=== PATIENT | female | born 1970 | race Caucasian/White ===

== ENCOUNTER → 2017-07-29 | Outpatient (CLI) | payer MEDICAID, BC ==
--- NOTE | 2017-07-29 14:10 | MM ---
Reason for exam: screening (asymptomatic). Baseline mammogram. History: Family history of breast cancer in paternal aunt. Took hormonal contraceptives beginning at age 22. Physical Findings: Nurse did not find any significant physical abnormalities on exam. MG 3D Screening Mammo W/Cad Bilateral CC and MLO view(s) were taken. The breast tissue is heterogeneously dense. This may lower the sensitivity of mammography. Right subtle medial asymmetry at middle depth. Left upper outer quadrant 3mm mass at middle depth. These results were verbally communicated with the patient and result sheet given to the patient on 07/29/17. ASSESSMENT: Incomplete: need additional imaging evaluation, BI-RAD 0 RECOMMENDATION: Special view mammogram of the right breast. Ultrasound of the left breast. [facility] will attempt to contact patient to return for supplemental views and ultrasound.
--- NOTE | 2017-07-29 14:12 | MM ---
Reason for exam: additional evaluation requested from abnormal screening. History: Family history of breast cancer in paternal aunt. Took hormonal contraceptives beginning at age 22. Physical Findings: Breast exam preformed at baseline screening. MG 3D Work Up W/Cad RT Spot compression CC and LM view(s) were taken of the right breast. The breast tissue is heterogeneously dense. This may lower the sensitivity of mammography. The medial right asymmetry resolves on spot compression and the lateral views appearing as fibroglandular tissue. These results were verbally communicated with the patient and result sheet given to the patient on 07/29/17. ASSESSMENT: Incomplete: need additional imaging evaluation, BI-RAD 0 RECOMMENDATION: Ultrasound. (left)
--- NOTE | 2017-07-29 14:14 | USB ---
Reason for exam: additional evaluation requested from abnormal screening. History: Family history of breast cancer in paternal aunt. Took hormonal contraceptives beginning at age 22. US Breast Workup Limited LT Left breast ultrasound demonstrates a 0.4 x 0.4 x 0.3cm oval, cystic cluster at 9 o'clock and a 0.7 x 0.8 x 0.2cm oval node at 9 o'clock. These results were verbally communicated with the patient and result sheet given to the patient on 07/29/17. ASSESSMENT: Benign, BI-RAD 2 RECOMMENDATION: Return to routine screening mammogram schedule for both breasts.
== END | disposition home or self-care (01) ==
LOC: RADMAMWWP 12:47 → MERGE 13:00
PROVIDERS: ATTEND Family Medicine
DX: Z12.31 Encounter for screening mammogram for malignant neoplasm of breast (principal); N63.21 Unspecified lump in the left breast, upper outer quadrant
CPT/HCPCS: 77067; 77065; 77063; 76642; G0279

== ENCOUNTER → 2017-07-30 | Outpatient (CLI) | payer MEDICAID, BC ==
[2017-07-30 08:01] LABS: Basophils # (A) 0.1 k/uL (0-0.2); Basophils % (A) 1 %; Eosinophils # (A) 0.5 k/uL (0-0.7); Eosinophils % (A) 7 %; HCT 37.6 % (34.0-46.0); HGB 12.3 gm/dL (11.4-16.0); Lymphocytes # (A) 2.8 k/uL (1.0-4.8); Lymphocytes % (A) 34 %; MCH 27.1 pg (25.0-35.0); MCHC 32.7 g/dL (31.0-37.0); MCV 82.9 fL (80.0-100.0); Mean Platelet Volume 7.5; Monocytes # (A) 0.5 k/uL (0-1.0); Monocytes % (A) 6 %; Neutrophils # (A) 4.3 k/uL (1.3-7.7); Neutrophils % (A) 51 %; Platelet Count 315 k/uL (150-450); RBC 4.53 m/uL (3.80-5.40); RDW 15.2 % (11.5-15.5); WBC 8.3 k/uL (3.8-10.6)
[2017-07-30 08:12] LABS: ALT 26 U/L (9-52); AST 23 U/L (14-36); Albumin 4.5 g/dL (3.5-5.0); Alkaline Phosphatase 83 U/L (38-126); Anion Gap 12 mmol/L; Blood Urea Nitrogen 9 mg/dL (7-17); Carbon Dioxide 28 mmol/L (22-30); Chloride 106 mmol/L (98-107); Cholesterol 158 mg/dL (<200); Glucose 94 mg/dL (74-99); HDL Cholesterol 47 mg/dL (40-60); LDL Cholesterol,Calculated 76 mg/dL (0-99); Potassium 4.5 mmol/L (3.5-5.1); Sodium 146 mmol/L (137-145); Total Bilirubin 0.4 mg/dL (0.2-1.3); Total Protein 7.4 g/dL (6.3-8.2); Triglycerides 174 mg/dL (<150)
== END | disposition home or self-care (01) ==
LOC: LABMAIN 07:13
PROVIDERS: ATTEND Nurse Practitioner
DX: Z00.00 Encounter for general adult medical examination without abnormal findings (principal); Z13.1 Encounter for screening for diabetes mellitus
CPT/HCPCS: 36415; 80053; 80061; 85025

== ENCOUNTER 2019-04-25 16:23 | Emergency (ER) | payer MEDICAID, BC ==
[2019-04-25 16:35] VITALS: RESP 18; TEMP 97.5
[2019-04-25] MEDS ORDERED: MORPHINE SULFATE 4 MG/ML SYRINGE IV STA (16:44)
[2019-04-25] MEDS ORDERED: METOCLOPRAMIDE 5 MG/ML 2 ML VIAL IVP STA (16:44)
[2019-04-25] MEDS ORDERED: SODIUM CHLORIDE 0.9% 1,000 ML IV STA ×2 (16:44)
--- NOTE | 2019-04-25 16:47 | ED ---
General Adult HPI - General Chief complaint: Headache Stated complaint: headache Time Seen by Provider: 04/25/19 16:27 Source: patient, family, RN notes reviewed Mode of arrival: ambulatory Limitations: no limitations - History of Present Illness Initial comments: Patient is a very pleasant 48-year-old female presenting to the emergency Department with complaints of headache. Onset of headache was around 1:00. Headache progressed over minutes. Headache is severe at this point. Headache is mostly behind the right eye. Patient has associated photophobia that is somewhat severe. Patient has nausea. Patient has had similar episodes approximate doesn't times over the past year. Patient has seen her doctor for this. Patient states she does have some blurry vision of the right eye at times. Patient also has some paresthesia of the left hand at times. No loss of sensation. No weakness. No confusion. No neck pain. No fevers. - Related Data Previous Rx's Medication Instructions Recorded Metoclopramide HCl [Reglan] 10 mg PO Q6HR PRN #15 tablet 04/25/19 Allergies Allergy/AdvReac Type Severity Reaction Status Date / Time No Known Allergies Allergy Verified 04/25/19 16:35 Review of Systems ROS Statement: Those systems with pertinent positive or pertinent negative responses have been documented in the HPI. ROS Other: All systems not noted in ROS Statement are negative. Constitutional: Denies: fever Eyes: Reports: as per HPI ENT: Denies: ear pain Respiratory: Denies: cough, dyspnea Cardiovascular: Denies: chest pain Endocrine: Denies: fatigue Gastrointestinal: Reports: nausea. Denies: abdominal pain, vomiting Genitourinary: Denies: urgency Musculoskeletal: Denies: back pain Skin: Denies: rash Neurological: Reports: as per HPI, headache. Denies: weakness Past Medical History Additional Past Medical History / Comment(s): retinitis pigmentosa History of Any Multi-Drug Resistant Organisms: None Reported Past Surgical History: Adenoidectomy, Tonsillectomy, Tubal Ligation Past Psychological History: No Psychological Hx Reported Smoking Status: Current every day smoker Past Alcohol Use History: Rare Past Drug Use History: None Reported General Exam Limitations: no limitations General appearance: alert, in no apparent distress Head exam: Present: normocephalic Eye exam: Present: normal appearance, PERRL, EOMI ENT exam: Present: normal oropharynx Neck exam: Present: normal inspection. Absent: tenderness, meningismus Respiratory exam: Present: normal lung sounds bilaterally Cardiovascular Exam: Present: regular rate, normal rhythm GI/Abdominal exam: Present: soft. Absent: tenderness Extremities exam: Present: normal inspection Neurological exam: Present: alert, oriented X3, CN II-XII intact. Absent: motor sensory deficit Expanded Neurological exam: Present: protecting the airway Patient oriented to: Present: person, place, time Speech: Present: fluid speech Cranial nerves: EOM's Intact: Normal Sensory exam: Upper Extremity Light Touch: Normal, Lower Extremity Light Touch: Normal Motor strength exam: RUE: 5, LUE: 5, RLE: 5, LLE: 5 Eye Response: (4) open spontaneously Motor Response: (6) obeys commands Verbal Response: (5) oriented Psychiatric exam: Present: normal affect, normal mood Skin exam: Present: normal color Course Vital Signs 04/25/19 16:32 Temperature 97.5 F L Pulse Rate 95 Respiratory 18 Rate Blood Pressure 134/83 O2 Sat by Pulse 100 Oximetry Medical Decision Making - Medical Decision Making patient reevaluated and feeling much better. Symptoms have essentially resolved. patient and family are updated on results and need for follow- up.patient is also recommended follow-up with neurology. - Lab Data Result diagrams: 04/25/19 16:40 04/25/19 16:40 Lab Results 04/25/19 04/25/19 04/25/19 Range/Units 16:40 16:40 16:40 WBC 12.3 H (3.8-10.6) k/uL RBC 4.52 (3.80-5.40) m/uL Hgb 12.0 (11.4-16.0) gm/dL Hct 37.9 (34.0-46.0) % MCV 83.7 (80.0-100.0) fL MCH 26.5 (25.0-35.0) pg MCHC 31.7 (31.0-37.0) g/dL RDW 14.2 (11.5-15.5) % Plt Count 285 (150-450) k/uL Neutrophils % 67 % Lymphocytes % 24 % Monocytes % 4 % Eosinophils % 3 % Basophils % 0 % Neutrophils # 8.3 H (1.3-7.7) k/uL Lymphocytes # 3.0 (1.0-4.8) k/uL Monocytes # 0.5 (0-1.0) k/uL Eosinophils # 0.3 (0-0.7) k/uL Basophils # 0.0 (0-0.2) k/uL PT 10.0 (9.0-12.0) sec INR 0.9 (<1.2) APTT 25.4 (22.0-30.0) sec Sodium 138 (137-145) mmol/L Potassium 4.2 (3.5-5.1) mmol/L Chloride 104 (98-107) mmol/L Carbon Dioxide 24 (22-30) mmol/L Anion Gap 10 mmol/L BUN 11 (7-17) mg/dL Creatinine 0.85 (0.52-1.04) mg/dL Est GFR (CKD-EPI)AfAm >90 (>60 ml/min/1.73 sqM) Est GFR (CKD-EPI)NonAf 82 (>60 ml/min/1.73 sqM) Glucose 119 H (74-99) mg/dL Calcium 9.9 (8.4-10.2) mg/dL Total Bilirubin 0.4 (0.2-1.3) mg/dL AST 22 (14-36) U/L ALT 14 (4-34) U/L Alkaline Phosphatase 111 (38-126) U/L Total Protein 7.6 (6.3-8.2) g/dL Albumin 4.5 (3.5-5.0) g/dL - Radiology Data Radiology results: report reviewed (Computed tomography scan of the brain and CTA shows no acute abdomen abnormality.) Disposition Clinical Impression: Headache Disposition: HOME SELF-CARE Condition: Stable Instructions (If sedation given, give patient instructions): Acute Headache (ED) Additional Instructions: please follow-up with primary care physician as well as neurology in the next few days for recheck. Return for increased pain, fever, weakness or confusion, persistent vomiting,loss of sensation, worsening symptoms or any other concerns. Reglan prescription sent to Hospital pharmacy. Prescriptions: Metoclopramide HCl [Reglan] 10 mg PO Q6HR PRN #15 tablet PRN Reason: Nausea Is patient prescribed a controlled substance at d/c from ED?: No Referrals: Janey Aaron DO [Primary Care Provider] - 1-2 days Time of Disposition: 18:10
[2019-04-25 17:01] LABS: Basophils % (A) 0 %; Eosinophils # (A) 0.3 k/uL (0-0.7); Eosinophils % (A) 3 %; HCT 37.9 % (34.0-46.0); Lymphocytes % (A) 24 %; MCH 26.5 pg (25.0-35.0); MCHC 31.7 g/dL (31.0-37.0); MCV 83.7 fL (80.0-100.0); Mean Platelet Volume 7.6; Monocytes # (A) 0.5 k/uL (0-1.0); Monocytes % (A) 4 %; Neutrophils # (A) 8.3 k/uL (1.3-7.7); Neutrophils % (A) 67 %; Platelet Count 285 k/uL (150-450); RBC 4.52 m/uL (3.80-5.40); RDW 14.2 % (11.5-15.5); WBC 12.3 k/uL (3.8-10.6)
[2019-04-25 17:13] LABS: ALT 14 U/L (4-34); AST 22 U/L (14-36); African American GFR (CKD) >90 (>60 ml/min/1.73 sqM); Albumin 4.5 g/dL (3.5-5.0); Alkaline Phosphatase 111 U/L (38-126); Anion Gap 10 mmol/L; Blood Urea Nitrogen 11 mg/dL (7-17); Calcium 9.9 mg/dL (8.4-10.2); Carbon Dioxide 24 mmol/L (22-30); Chloride 104 mmol/L (98-107); Glucose 119 mg/dL (74-99); Non-African American GFR(CKD) 82 (>60 ml/min/1.73 sqM); Potassium 4.2 mmol/L (3.5-5.1); Sodium 138 mmol/L (137-145); Total Bilirubin 0.4 mg/dL (0.2-1.3); Total Protein 7.6 g/dL (6.3-8.2)
[2019-04-25 17:15] LABS: INR 0.9 (<1.2); Partial Thromboplastin Time 25.4 sec (22.0-30.0)
--- NOTE | 2019-04-25 17:24 | CT ---
EXAMINATION TYPE: CT brain wo con DATE OF EXAM: 04/25/2019 COMPARISON: None HISTORY: Headache. CT DLP: 1006 mGycm Automated exposure control for dose reduction was used. Ventricles and sulci appear normal. There is no mass effect nor midline shift. There is no sign of in tracranial hemorrhage. The calvarium is intact. IMPRESSION: Negative CT scan of the brain.
--- NOTE | 2019-04-25 17:30 | CT ---
EXAMINATION TYPE: CT angio head DATE OF EXAM: 04/25/2019 COMPARISON: None HISTORY: Headache. CT DLP: 582.9 mGycm Automated exposure control for dose reduction was used. CONTRAST: Performed with IV Contrast, patient injected with 100ml mL of Isovue 300. There are 3-D post processed images. There is arterial flow in the anterior middle and posterior cerebral arteries. There is arterial flow in the vertebrobasilar artery system. There is no mass effect. There is no evidence of intracranial aneurysm or neovascularity. There is no evidence of hemodynamic stenosis. There is normal contrast opacification of the venous sinuses. IMPRESSION: Negative CT angiogram of the brain.
[2019-04-25 18:20] VITALS: BP 129/69; PULSE 82
== END 2019-04-25 18:12 | disposition home or self-care (01) ==
LOC: EC 16:23
DX: R51 Headache (principal); R11.0 Nausea; R20.2 Paresthesia of skin; F17.200 Nicotine dependence, unspecified, uncomplicated
CPT/HCPCS: 36415; 80053; 85025; 85610; 85730; 70496; 70450; 99284; 96374; 96375; 96361; J2270; J2765; Q9967

== ENCOUNTER → 2021-03-25 | Outpatient (CLI) | payer MEDICAID, BC, OTHER | END | disposition home or self-care (01) | LOC: LAB 08:06 | PROVIDERS: ATTEND Emergency Medicine | DX: U07.1 COVID-19 (principal) | CPT/HCPCS: 87635 ==

== ENCOUNTER 2021-12-23 14:31 | Emergency (ER) | payer MEDICAID, BC ==
[2021-12-23 14:34] VITALS: BP 125/80; PULSE 76; RESP 20; TEMP 97.6
[2021-12-23] MEDS ORDERED: SODIUM CHLORIDE 0.9% 1,000 ML IV STA (14:52)
[2021-12-23] MEDS ORDERED: PROCHLORPERAZINE INJ 10 MG/2 ML VIAL IVP STA (14:52)
[2021-12-23] MEDS ORDERED: diphenhydrAMINE 50 MG/ML 1 ML VIAL IVP STA (14:52)
[2021-12-23] MEDS ORDERED: KETOROLAC 15 MG/ML 1 ML VIAL IVP STA (14:52)
[2021-12-23 15:11] LABS: Basophils % (A) 0 %; Eosinophils # (A) 0.1 k/uL (0-0.7); Eosinophils % (A) 1 %; HCT 36.2 % (34.0-46.0); HGB 11.8 gm/dL (11.4-16.0); Hypochromasia Slight; Lymphocytes # (A) 1.3 k/uL (1.0-4.8); Lymphocytes % (A) 16 %; MCH 25.8 pg (25.0-35.0); MCHC 32.5 g/dL (31.0-37.0); MCV 79.4 fL (80.0-100.0); Monocytes # (A) 0.3 k/uL (0-1.0); Monocytes % (A) 3 %; Neutrophils # (A) 6.7 k/uL (1.3-7.7); Neutrophils % (A) 80 %; Platelet Count 333 k/uL (150-450); RBC 4.56 m/uL (3.80-5.40); RDW 15.8 % (11.5-15.5); WBC 8.4 k/uL (3.8-10.6)
[2021-12-23 15:20] LABS: African American GFR (CKD) >90 (>60 ml/min/1.73 sqM); Anion Gap 12 mmol/L; Blood Urea Nitrogen 9 mg/dL (7-17); Calcium 9.5 mg/dL (8.4-10.2); Carbon Dioxide 21 mmol/L (22-30); Chloride 103 mmol/L (98-107); Glucose 117 mg/dL (74-99); Magnesium 1.8 mg/dL (1.6-2.3); Non-African American GFR(CKD) 86 (>60 ml/min/1.73 sqM); Sodium 136 mmol/L (137-145)
--- NOTE | 2021-12-23 16:07 | ED ---
General Adult HPI - General Chief complaint: Headache Stated complaint: headache, vision trouble Time Seen by Provider: 12/23/21 14:39 Source: patient, RN notes reviewed, old records reviewed Mode of arrival: ambulatory Limitations: no limitations - History of Present Illness Initial comments: Patient is a 51-year-old female with past medical history remarkable for retinitis pigmentosa who presents emergency Department complaining of sudden onset of worsening right eye visual loss, right eye pain, as well as migraine- type headache. This started last night. Has not improved. States she was showering last night when it started. Progressively got worse throughout the day today. Endorses nausea with it. Endorses blurry vision from the right eye with it. States she normally does have worse vision in the right eye but not as bad as current. States she sees movement and cannot make out any definitive words. Was going to follow up with her cut off saw tender metal but decided to come here for further evaluation. Endorses her typical migraine type headache. Denies any fevers, chills, cough. His no chest pain. Endorses nausea but no episodes of emesis. No other acute complaints at this time. Presents for further evaluation. No history of glaucoma. - Related Data Previous Rx's Medication Instructions Recorded Metoclopramide HCl [Reglan] 10 mg PO Q6HR PRN #15 tablet 04/25/19 Allergies Allergy/AdvReac Type Severity Reaction Status Date / Time No Known Allergies Allergy Verified 12/23/21 14:34 Review of Systems ROS Statement: Those systems with pertinent positive or pertinent negative responses have been documented in the HPI. Review of Systems: CONST: Denies fever EYES: Endorses blurry vision. ENT: Denies nasal congestion C/V: Denies Chest pain RESP: Denies shortness of breath GI: Denies abdominal pain : Denies dysuria SKIN: Denies rash. MSK: Denies joint pain. NEURO: Endorses headache. ROS Other: All systems not noted in ROS Statement are negative. Past Medical History Additional Past Medical History / Comment(s): retinitis pigmentosa History of Any Multi-Drug Resistant Organisms: None Reported Past Surgical History: Adenoidectomy, Tonsillectomy, Tubal Ligation Past Psychological History: No Psychological Hx Reported Smoking Status: Current every day smoker Past Alcohol Use History: Rare Past Drug Use History: None Reported General Exam - General Exam Comments Initial Comments: General: Appears in mild distress secondary to pain. HEAD: Normal with no signs of head trauma. EYES: Left eye is 3 mm and reactive to light. Conjunctiva unremarkable. EOMI bilateral. Right eye is approximately 4 mm with fixed dilation and not reactive to light. Conjunctival injection. Visual acuity in the left eye is 20/40. Right eye is 200/20. ENT: Hearing grossly intact, normal oropharynx. RESPIRATORY: Clear breath sounds bilaterally. No wheezes, rales, or rhonchi. C/V: Regular rate and rhythm. S1 and S2 auscultated, no edema, peripheral pulses 2+ and intact throughout ABD: Abd is soft, nontender, nondistended EXT: Normal range of motion, no obvious deformity SKIN: No rashes or lesions observed on exposed skin. NEURO: Alert and oriented 4. No focal sensory strength deficits. Other than the decreased vision in the right eye, and right eye findings, NIH is 0. GCS is 15. No other neurological findings. Limitations: no limitations Course Vital Signs 12/23/21 14:32 Temperature 97.6 F Pulse Rate 76 Respiratory 20 Rate Blood Pressure 125/80 O2 Sat by Pulse 97 Oximetry Medical Decision Making - Medical Decision Making Based on the patient's presentation and physical exam, I'm concerned for possible intraocular issue at this time, including acute angle closure glaucoma. We will attempt to obtain intraocular pressures. Basic labs will be obtained. I will send him back to treat her for her headache as well as nausea at this time. She was in agreement this plan. Vital signs are within normal limits. Multiple attempts by ED providers including myself were unsuccessful in obtaining intraocular pressures secondary to the device malfunction. Laboratory studies are unremarkable. At this time I did decide to call ophthalmology on- call, Dr. Orr discuss the case with him. He was in agreement that the patient is to be evaluated, and he just got out of surgery. He would like the patient to follow up in his office immediately, and he will meet them there. I did provide them with the address, [address] [place] [address]. I also had staff fax over a face sheet to [phone]. I discussed this with the patient and she was in agreement this plan. Ophthalmology was in agreement on holding eyedrops. Patient will be immediately discharge, and family members are driving her to the ophthalmology office at this time. There is concern for acute angle closure glaucoma. I instructed the patient to follow up with their PCP in the next 1-3 days. I provided contact information for follow up with Dr. Orr immediately. I explained that the patient should return to the emergency department if they experience any worsening symptoms. Strict return precautions were discussed with the patient. The patient expressed understanding of these instructions. I answered all questions that the patient had. The patient was discharged home in stable condition with their prescriptions and follow up information. - Lab Data Result diagrams: 12/23/21 15:06 12/23/21 15:06 Lab Results 12/23/21 12/23/21 Range/Units 15:06 15:06 WBC 8.4 (3.8-10.6) k/uL RBC 4.56 (3.80-5.40) m/uL Hgb 11.8 (11.4-16.0) gm/dL Hct 36.2 (34.0-46.0) % MCV 79.4 L (80.0-100.0) fL MCH 25.8 (25.0-35.0) pg MCHC 32.5 (31.0-37.0) g/dL RDW 15.8 H (11.5-15.5) % Plt Count 333 (150-450) k/uL MPV 7.0 Neutrophils % 80 % Lymphocytes % 16 % Monocytes % 3 % Eosinophils % 1 % Basophils % 0 % Neutrophils # 6.7 (1.3-7.7) k/uL Lymphocytes # 1.3 (1.0-4.8) k/uL Monocytes # 0.3 (0-1.0) k/uL Eosinophils # 0.1 (0-0.7) k/uL Basophils # 0.0 (0-0.2) k/uL Hypochromasia Slight Sodium 136 L (137-145) mmol/L Potassium 4.0 (3.5-5.1) mmol/L Chloride 103 (98-107) mmol/L Carbon Dioxide 21 L (22-30) mmol/L Anion Gap 12 mmol/L BUN 9 (7-17) mg/dL Creatinine 0.80 (0.52-1.04) mg/dL Est GFR (CKD-EPI)AfAm >90 (>60 ml/min/1.73 sqM) Est GFR (CKD-EPI)NonAf 86 (>60 ml/min/1.73 sqM) Glucose 117 H (74-99) mg/dL Calcium 9.5 (8.4-10.2) mg/dL Magnesium 1.8 (1.6-2.3) mg/dL Disposition Clinical Impression: Pain, eye, right, Headache Narrative: concern for acute angle closure glaucoma, right eye Disposition: HOME SELF-CARE Condition: Stable Additional Instructions: [address] [facility]. Follow up with Dr. Orr immediately at this address. Is patient prescribed a controlled substance at d/c from ED?: No Referrals: Janey Aaron DO [Primary Care Provider] - 1-2 days Time of Disposition: 16:05
== END 2021-12-23 16:08 | disposition home or self-care (01) ==
LOC: EC 14:31
DX: R51.9 Headache, unspecified (principal); F17.200 Nicotine dependence, unspecified, uncomplicated
CPT/HCPCS: 36415; 80048; 83735; 85025; 99284; 96374; 96375; 96361; J1200; J0780; J1885

== ENCOUNTER 2024-03-27 09:24 | Emergency (ER) | payer MEDICAID, BC ==
[2024-03-27 09:28] VITALS: TEMP 97.9
[2024-03-27] MEDS: MECLIZINE 12.5 MG TAB PO STA (09:55)
[2024-03-27] MEDS: SODIUM CHLORIDE 0.9% 1,000 ML IV STA (10:21)
[2024-03-27 10:29] LABS: Appearance,Urine Clear (Clear); Bilirubin,Urine Negative (Negative); Blood,Urine Negative (Negative); Color,Urine Light Yellow; Glucose,Urine (UA) Negative (Negative); Ketones,Urine Negative (Negative); Leukocyte Esterase,Urine Negative (Negative); Nitrite,Urine Negative (Negative); Protein,Urine Trace (Negative); Specific Gravity,Urine 1.017 (1.001-1.035); Urobilinogen,Urine <2.0 mg/dL (<2.0)
[2024-03-27 10:30] LABS: Anisocytosis Slight; Basophils % (A) 1 %; Eosinophils # (A) 0.1 k/uL (0-0.7); Eosinophils % (A) 2 %; HCT 30.8 % (34.0-46.0); HGB 9.5 gm/dL (11.4-16.0); Hypochromasia Marked; Lymphocytes % (A) 27 %; MCH 22.7 pg (25.0-35.0); MCHC 30.9 g/dL (31.0-37.0); MCV 73.5 fL (80.0-100.0); Mean Platelet Volume 6.8; Microcytosis Moderate; Monocytes # (A) 0.4 k/uL (0-1.0); Monocytes % (A) 5 %; Neutrophils # (A) 4.9 k/uL (1.3-7.7); Neutrophils % (A) 65 %; Platelet Count 386 k/uL (150-450); RBC 4.19 m/uL (3.80-5.40); RDW 18.4 % (11.5-15.5); WBC 7.6 k/uL (3.8-10.6)
[2024-03-27 10:39] LABS: ALT 23 U/L (4-34); AST 25 U/L (14-36); African American GFR (CKD) >90 (>60 ml/min/1.73 sqM); Albumin 4.2 g/dL (3.5-5.0); Alkaline Phosphatase 128 U/L (38-126); Anion Gap 6 mmol/L; Blood Urea Nitrogen 7 mg/dL (7-17); Calcium 8.9 mg/dL (8.4-10.2); Carbon Dioxide 24 mmol/L (22-30); Chloride 108 mmol/L (98-107); Glucose 115 mg/dL (74-99); Magnesium 1.9 mg/dL (1.6-2.3); Non-African American GFR(CKD) 82 (>60 ml/min/1.73 sqM); Sodium 138 mmol/L (137-145); Total Bilirubin 0.5 mg/dL (0.2-1.3); Total Protein 7.2 g/dL (6.3-8.2)
--- NOTE | 2024-03-27 11:31 | ED ---
Dizziness HPI - General Chief Complaint: Dizziness Stated Complaint: Dizziness Time Seen by Provider: 03/27/24 09:31 Source: patient, RN notes reviewed Mode of arrival: ambulatory Limitations: no limitations - History of Present Illness Initial Comments: This is a 53-year-old female who presents to the emergency department for dizziness. Patient has retinitis pigmentosa and occasionally gets dizziness with this. However, over the last couple of days she has had intermittent bouts of dizziness that last about 5 minutes at a time and then resolve. Today she went to work and states that the dizziness got worse. She feels lightheaded and somewhat off balance when she tries to stand. Feels overall very shaky as well. Believes that this may be somewhat positional. States that when she has dizziness with the retinitis pigmentosa she feels like the room is spinning. However, this dizziness makes her feel like she is spinning. Denies any chest pain or shortness of breath with this. Does not have any headaches. MD Complaint: dizziness - Related Data Previous Rx's Medication Instructions Recorded Metoclopramide HCl [Reglan] 10 mg PO Q6HR PRN #15 tablet 04/25/19 Meclizine HCl 25 mg PO QID PRN #30 tab 03/27/24 Scopolamine [Scopolamine 1 MG/72 1 patch TRANSDERM Q72H PRN #8 patch 03/27/24 HR patch] Allergies Allergy/AdvReac Type Severity Reaction Status Date / Time No Known Allergies Allergy Verified 03/27/24 09:28 Review of Systems ROS Statement: Those systems with pertinent positive or pertinent negative responses have been documented in the HPI. ROS Other: All systems not noted in ROS Statement are negative. Past Medical History Additional Past Medical History / Comment(s): retinitis pigmentosa History of Any Multi-Drug Resistant Organisms: None Reported Past Surgical History: Adenoidectomy, Tonsillectomy, Tubal Ligation Past Psychological History: No Psychological Hx Reported Smoking Status: Current every day smoker Past Alcohol Use History: Rare Past Drug Use History: None Reported General Exam Limitations: no limitations General appearance: alert, in no apparent distress Head exam: Present: atraumatic, normocephalic, normal inspection Eye exam: Present: normal appearance, PERRL, EOMI. Absent: scleral icterus, conjunctival injection, periorbital swelling Respiratory exam: Present: normal lung sounds bilaterally. Absent: respiratory distress, wheezes, rales, rhonchi, stridor Cardiovascular Exam: Present: regular rate, normal rhythm, normal heart sounds. Absent: systolic murmur, diastolic murmur, rubs, gallop, clicks Neurological exam: Present: alert, oriented X3, CN II-XII intact, other (HINTS exam negative) Expanded Cerebellar function: Finger to Nose: Normal, Heel to Mathew: Normal, Romberg: Normal Motor strength exam: RUE: 5, LUE: 5, RLE: 5, LLE: 5 Psychiatric exam: Present: normal affect, normal mood Skin exam: Present: warm, dry, intact, normal color. Absent: rash Course Vital Signs 03/27/24 03/27/24 03/27/24 09:25 10:49 12:06 Temperature 97.9 F Pulse Rate 65 85 89 Respiratory 20 18 14 Rate Blood Pressure 152/83 129/72 115/77 O2 Sat by Pulse 96 100 Oximetry Medical Decision Making - Medical Decision Making This is a 53 year old female who presents to the emergency department for dizziness. Was pt. sent in by a medical professional or institution? @ -No Did you speak to anyone other than the patient for history? @ -No Did you review nursing and triage notes? @ -Yes, and I agree, it is accurate with regards to the patient's symptoms. Were old charts reviewed? @ -No Differential Diagnosis? @ -Differential Dizziness: Benign paroxysmal positional Vertigo, Meniere's disease, otitis media, acoustic neuroma, vertebrobasilar insufficiency, cerebellar stroke, encephalitis, hypovolemic, arrhythmia, coronary artery syndrome, anemia, this is not meant to be an all-inclusive list EKG interpreted by me (3pts min.)? @ -EKG interpreted by me demonstrating the following: Sinus rhythm. Ventricular rate 93 bpm, NC interval 136 ms, QRS duration 88 ms, QTc 452 ms. X-rays interpreted by me (1pt min.)? @ -Not obtained CT interpreted by me (1pt min.)? @ -Not obtained U/S interpreted by me (1pt. min.)? @ -Not obtained What testing was considered but not performed? (CT, X-rays, U/S, labs)? Why? @ -None What meds were considered but not given? Why? @ -None Did you discuss the management of the patient with other professionals? @ -No Did you reconcile home meds? @ -No Was smoking cessation discussed for >3mins.? @ -I discussed smoking cessation for greater than 3 minutes. The risk of smoking were discussed with the patient including but not limited to risks of cancer, stroke, coronary artery disease and COPD. Also discussed with patient were multiple methods of quitting smoking. Lastly we discussed the financial cost of smoking. Was critical care preformed (if so, how long)? @ -No Were there social determinants of health that impacted care today? How? (Homelessness, low income, unemployed, alcoholism, drug addiction, transportation, low edu. Level, literacy, decrease access to med. care, longterm, rehab)? @ -No Was there de-escalation of care discussed even if they declined? (Discuss DNR or withdrawal of care, Hospice)? @ -No What co-morbidities impacted this encounter? (DM, HTN, Smoking, COPD, CAD, Cancer, CVA, Hep., AIDS, mental health diagnosis, sleep apnea, morbid obesity)? @ -Smoking, retinitis pigmentosa Was patient admitted / discharged? @ -Discharged. Lab work demonstrates a hemoglobin of 9.5. This was last rechecked 2 years ago, however this has decreased. Lab work otherwise unremarkable. Discussed with the patient that she may be anemic and this needs to be followed up on. NIH was 0 and HINTS exam negative. She did have improvement with IV fluids and meclizine. Symptoms may be related to vertigo. Meclizine and scopolamine patches prescribed for further symptomatic management. We also discussed the half somersault maneuver by Dr. Alice Grant as another treatment option. Advised close follow-up with her PCP and strict return parameters were reviewed. Patient discharged home in stable condition. Case discussed with ED attending Dr. Duke. Return precautions reviewed in depth, the patient is instructed to return to the emergency department with any new, worsening, or concerning symptoms. Patient verbalized understanding. Undiagnosed new problem with uncertain prognosis? @ -None Drug Therapy requiring intensive monitoring for toxicity (Heparin, Nitro, Insulin, Cardizem)? @ -None Were any procedures done? @ -None Diagnosis/symptom? @ -Dizziness, BPPV, anemia Acute, or Chronic, or Acute on Chronic? @ -Acute Uncomplicated (without systemic symptoms) or Complicated (systemic symptoms)? @ -Uncomplicated Side effects of treatment? @ -No Exacerbation, Progression, or Severe Exacerbation] @ -Not applicable Poses a threat to life or bodily function? @ -Unlikely - Lab Data Result diagrams: 03/27/24 10:03 03/27/24 10:03 Lab Results 03/27/24 03/27/24 03/27/24 Range/Units 10:03 10:03 10:03 WBC 7.6 (3.8-10.6) k/uL RBC 4.19 (3.80-5.40) m/uL Hgb 9.5 L (11.4-16.0) gm/dL Hct 30.8 L (34.0-46.0) % MCV 73.5 L (80.0-100.0) fL MCH 22.7 L (25.0-35.0) pg MCHC 30.9 L (31.0-37.0) g/dL RDW 18.4 H (11.5-15.5) % Plt Count 386 (150-450) k/uL MPV 6.8 Neutrophils % 65 % Lymphocytes % 27 % Monocytes % 5 % Eosinophils % 2 % Basophils % 1 % Neutrophils # 4.9 (1.3-7.7) k/uL Lymphocytes # 2.0 (1.0-4.8) k/uL Monocytes # 0.4 (0-1.0) k/uL Eosinophils # 0.1 (0-0.7) k/uL Basophils # 0.0 (0-0.2) k/uL Hypochromasia Marked Anisocytosis Slight Microcytosis Moderate Sodium 138 (137-145) mmol/L Potassium 4.0 (3.5-5.1) mmol/L Chloride 108 H (98-107) mmol/L Carbon Dioxide 24 (22-30) mmol/L Anion Gap 6 mmol/L BUN 7 (7-17) mg/dL Creatinine 0.82 (0.52-1.04) mg/dL Est GFR (CKD-EPI)AfAm >90 (>60 ml/min/1.73 sqM) Est GFR (CKD-EPI)NonAf 82 (>60 ml/min/1.73 sqM) Glucose 115 H (74-99) mg/dL Plasma Lactic Acid Chris (0.7-2.0) mmol/L Calcium 8.9 (8.4-10.2) mg/dL Magnesium 1.9 (1.6-2.3) mg/dL Total Bilirubin 0.5 (0.2-1.3) mg/dL AST 25 (14-36) U/L ALT 23 (4-34) U/L Alkaline Phosphatase 128 H (38-126) U/L Troponin I (0.000-0.034) ng/mL Total Protein 7.2 (6.3-8.2) g/dL Albumin 4.2 (3.5-5.0) g/dL TSH 1.670 (0.465-4.680) mIU/L Urine Color Light Yellow Urine Appearance Clear (Clear) Urine pH 6.0 (5.0-8.0) Ur Specific [place] 1.017 (1.001-1.035) Urine Protein Trace H (Negative) Urine Glucose (UA) Negative (Negative) Urine Ketones Negative (Negative) Urine Blood Negative (Negative) Urine Nitrite Negative (Negative) Urine Bilirubin Negative (Negative) Urine Urobilinogen <2.0 (<2.0) mg/dL Ur Leukocyte Esterase Negative (Negative) 03/27/24 03/27/24 Range/Units 10:03 10:03 WBC (3.8-10.6) k/uL RBC (3.80-5.40) m/uL Hgb (11.4-16.0) gm/dL Hct (34.0-46.0) % MCV (80.0-100.0) fL MCH (25.0-35.0) pg MCHC (31.0-37.0) g/dL RDW (11.5-15.5) % Plt Count (150-450) k/uL MPV Neutrophils % % Lymphocytes % % Monocytes % % Eosinophils % % Basophils % % Neutrophils # (1.3-7.7) k/uL Lymphocytes # (1.0-4.8) k/uL Monocytes # (0-1.0) k/uL Eosinophils # (0-0.7) k/uL Basophils # (0-0.2) k/uL Hypochromasia Anisocytosis Microcytosis Sodium (137-145) mmol/L Potassium (3.5-5.1) mmol/L Chloride (98-107) mmol/L Carbon Dioxide (22-30) mmol/L Anion Gap mmol/L BUN (7-17) mg/dL Creatinine (0.52-1.04) mg/dL Est GFR (CKD-EPI)AfAm (>60 ml/min/1.73 sqM) Est GFR (CKD-EPI)NonAf (>60 ml/min/1.73 sqM) Glucose (74-99) mg/dL Plasma Lactic Acid Chris 0.9 (0.7-2.0) mmol/L Calcium (8.4-10.2) mg/dL Magnesium (1.6-2.3) mg/dL Total Bilirubin (0.2-1.3) mg/dL AST (14-36) U/L ALT (4-34) U/L Alkaline Phosphatase (38-126) U/L Troponin I <0.012 (0.000-0.034) ng/mL Total Protein (6.3-8.2) g/dL Albumin (3.5-5.0) g/dL TSH (0.465-4.680) mIU/L Urine Color Urine Appearance (Clear) Urine pH (5.0-8.0) Ur Specific [place] (1.001-1.035) Urine Protein (Negative) Urine Glucose (UA) (Negative) Urine Ketones (Negative) Urine Blood (Negative) Urine Nitrite (Negative) Urine Bilirubin (Negative) Urine Urobilinogen (<2.0) mg/dL Ur Leukocyte Esterase (Negative) Disposition Clinical Impression: Dizziness, BPPV (benign paroxysmal positional vertigo), Anemia Disposition: HOME SELF-CARE Instructions (If sedation given, give patient instructions): Vertigo (ED), Dave ign Paroxysmal Positional Vertigo (ED), Dizziness (ED), Anemia (ED) Additional Instructions: Return to the emergency department with any new, worsening, or concerning symptoms. Take the meclizine up to 4 times daily as needed for dizziness/vertigo. You can also apply the scopolamine patches to see if that helps with your symptoms. You can also look up the half somersault maneuver by Dr. Alice Grant as an additional treatment option. Consider starting a daily iron supplement as well and have the anemia reevaluated. Follow up with your primary care provider in 1-2 days. Prescriptions: Meclizine HCl 25 mg PO QID PRN #30 tab PRN Reason: Vertigo Scopolamine [Scopolamine 1 MG/72 HR patch] 1 patch TRANSDERM Q72H PRN #8 patch PRN Reason: Vertigo Is patient prescribed a controlled substance at d/c from ED?: No Referrals: Janey Aaron DO [Primary Care Provider] - 1-2 days Time of Disposition: 12:00
[2024-03-27 12:13] VITALS: BP 115/77; PULSE 89; RESP 14
== END 2024-03-27 12:20 | disposition home or self-care (01) ==
LOC: EC 09:24
DX: H81.10 Benign paroxysmal vertigo, unspecified ear (principal); D64.9 Anemia, unspecified; F17.200 Nicotine dependence, unspecified, uncomplicated
CPT/HCPCS: 36415; 80053; 81003; 83605; 83735; 84443; 84484; 85025; 93005; 96360; 99284; 99406